=== PATIENT | female | born 1980 | race Two or more races ===

== ENCOUNTER 2018-10-11 18:16 | Emergency (ER) | payer SELFPAY ==
[~2018-10-11] VITALS: Ht 160 cm; Wt 60.0 kg
[2018-10-11] MEDS ORDERED: DIPHENHYDRAMINE 50MG/ML VIAL IM ONE (21:15)
[2018-10-11] MEDS ORDERED: LORAZEPAM 2MG/ML CPJ IM ONE (21:15)
[2018-10-11] MEDS ORDERED: HALOPERIDOL LACTATE 5MG/ML VIAL IM ONE (21:15)
[2018-10-11] MEDS ORDERED: SODIUM CHLORIDE 0.9% 1,000 ML IV ONE (22:20)
[2018-10-11 22:35] LABS: BASOPHILS % 0.8 % (0.0-2.0); EOSINOPHILS % 0.7 % (0.0-5.0); HEMATOCRIT. 41.1 % (36.0-48.0); HEMOGLOBIN. 13.6 g/dL (12.0-16.0); LYMPHOCYTES % 13.6 % (20.0-50.0); MEAN CORPUSCULAR HEMOGLOBIN 29.7 pg (28.0-32.0); MEAN CORPUSCULAR VOLUME 89.8 fL (81.0-99.0); MEAN PLATELET VOLUME 7.5 fl (7.4-10.4); MONOCYTES % 6.2 % (2.0-8.0); NEUTROPHILS % 78.7 % (40.0-76.0); PLATELET 389 x1000/uL (130-400); RED BLOOD CELL COUNT 4.58 mill/uL (4.2-5.4); RED CELL DISTRIBUTION WIDTH 13.8 % (11.6-14.6)
[2018-10-11 22:40] LABS: CHLORIDE 112 mEq/L (98-107)
[2018-10-11 22:41] LABS: HCG SCREEN NEGATIVE
[2018-10-11 22:44] LABS: ETHANOL BLOOD < 10 mg/dL
[2018-10-11 23:01] LABS: CLARITY URINE CLEAR (CLEAR); COLOR URINE YELLOW (YELLOW); KETONES URINE 2+ (NEGATIVE); LEUKOCYTE ESTERASE URINE 1+ (NEGATIVE); NITRITE URINE NEGATIVE (NEGATIVE); OCCULT BLOOD URINE NEGATIVE (NEGATIVE); PROTEIN URINE NEGATIVE (NEGATIVE); SPECIFIC GRAVITY URINE 1.024 (1.005-1.030); UROBILINOGEN URINE 0.2 E.U./dL (0.2-1.0)
[2018-10-11 23:12] LABS: *BARBITURATES SCREEN URINE NEGATIVE (NEGATIVE)
[2018-10-11 23:13] LABS: METHADONE URINE SCREEN NEGATIVE (NEGATIVE); OPIATES URINE SCREEN NEGATIVE (NEGATIVE); PHENCYCLIDINE URINE SCREEN NEGATIVE (NEGATIVE)
[2018-10-11 23:15] LABS: *AMPHETAMINES SCREEN URINE PRESUMTIVE POSITIVE (NEGATIVE); *BENZODIAZEPINES SCREEN URINE PRESUMTIVE POSITIVE (NEGATIVE); *COCAINE SCREEN URINE PRESUMTIVE POSITIVE (NEGATIVE); CANNABINOID URINE SCREEN PRESUMTIVE POSITIVE (NEGATIVE)
[2018-10-12] MEDS ORDERED: POTASSIUM CHLORIDE 20MEQ TABLET SR PO ONE (06:15)
[2018-10-12 11:35] VITALS: BP 128/67
== END 2018-10-12 12:41 | disposition home or self-care (01) ==
LOC: ER 18:16 → EDBD 18:16 → ER 10-12 12:41
DX: F19.10 Other psychoactive substance abuse, uncomplicated (principal); E87.8 Other disorders of electrolyte and fluid balance, not elsewhere classified; R41.82 Altered mental status, unspecified
CPT/HCPCS: 36415; 70450; 71045; 80053; 80305; 80307; 80320; 80329; 81003; 81025; 83690; 84443; 84703; 85025; 85610; 96360; 96361; 96372; 99284; J1200; J1630; J2060; J7030; Z7610; G0480